=== PATIENT | male | born 1950 | race Caucasian/White ===

== ENCOUNTER → 2019-09-28 | Outpatient (CLI) | payer MEDICARE, OTHER ==
[~2019-09-28] MED LIST: Advair Hfa 230-12 GM; DIPH12.5EL
== END | disposition home or self-care (01) ==
LOC: LAB SHORT 07:55 → LAB EV 07:55
DX: S31.20XA Unspecified open wound of penis, initial encounter (principal)
CPT/HCPCS: 87070; 87205; 87529

== ENCOUNTER → 2023-02-04 | Outpatient (CLI) | payer MEDICARE, OTHER | END | disposition home or self-care (01) | LOC: LAB 13:28 → LAB SHORT 13:28 | DX: M25.572 Pain in left ankle and joints of left foot (principal) | CPT/HCPCS: 84550 ==

== ENCOUNTER 2024-12-22 07:43 | Emergency (ER) | payer MEDICARE, OTHER ==
[~2024-12-22] VITALS: Ht 185.4 cm; Wt 81.7 kg
[2024-12-22] MEDS ORDERED: HYDROXYZ HCL 25 MG (08:19)
[2024-12-22] MEDS ORDERED: HYDHCL25 PO (08:20)
[2024-12-22 08:22] LABS: BASOPHILS ABSOLUTE AUTO 0.04 K/mm3 (0.00-0.23); BASOPHILS PERCENT AUTO 0 % (0-2); EOSINOPHILS ABSOLUTE AUTO 0.54 K/mm3 (0.00-0.68); EOSINOPHILS PERCENT AUTO 5 % (0-6); Hemoglobin 11.5 g/dL (13.5-17.5); IMMATURE GRAN ABSOLUTE AUTO 0.07 K/mm3 (0.00-0.10); IMMATURE GRAN PERCENT AUTO 1 % (0-1); LYMPHOCYTES ABSOLUTE AUTO 0.95 K/mm3 (0.84-5.20); LYMPHOCYTES PERCENT AUTO 9 % (21-46); MONOCYTES ABSOLUTE AUTO 1.19 K/mm3 (0.16-1.47); MONOCYTES PERCENT AUTO 12 % (4-13); Mean Corpuscular HGB 31.5 pg (26.0-34.0); Mean Corpuscular HGB Conc 35.9 g/dL (31.5-36.5); Mean Corpuscular Volume 88 fL (80-100); Mean Platelet Volume 9.5 fL (9.1-12.4); NEUTROPHILS ABSOLUTE AUTO 7.32 K/mm3 (1.96-9.15); NEUTROPHILS PERCENT AUTO 72 % (41-73); Platelet Count 295 K/mm3 (150-400); RDW Coefficient Variation 22.9 % (11.7-14.2); RDW Standard Deviation 73.7 fL (35.1-46.3); Red Blood Cell Count 3.65 M/mm3 (4.30-5.90); White Blood Cell Count 10.11 K/mm3 (4.00-11.30)
[2024-12-22 08:57] LABS: Albumin, Blood 2.4 g/dL (3.4-5.0); Albumin/Globulin Ratio 0.8 (0.8-1.8); Bilirubin, Total 24.5 mg/dL (0.1-1.0); Calcium, Blood 9.2 mg/dL (8.5-10.1); Creatinine, Blood 0.57 mg/dL (0.60-1.20); Globulin, Blood 3.2 g/dL (2.2-4.0); Total Protein, Blood 5.6 g/dL (6.4-8.2)
[2024-12-22 15:47] VITALS: BP 134/71
== END 2024-12-22 17:29 | disposition home or self-care (01) ==
LOC: ER 07:43
PROVIDERS: Emergency Medicine
DX: K83.1 Obstruction of bile duct (principal); Z91.040 Latex allergy status; Z79.899 Other long term (current) drug therapy; Z87.891 Personal history of nicotine dependence
CPT/HCPCS: 80053; 83690; 85025; 99283

== ENCOUNTER 2025-01-21 17:14 | Inpatient (IN) | payer MEDICARE, OTHER ==
[~2025-01-21] VITALS: Ht 185.4 cm; Wt 76.5 kg
[~2025-01-21 17:14] MED LIST changes: +HYDHCL25 PO; +HYDROXYZ HCL 25 MG
[2025-01-21] MEDS ORDERED: Lactated Ringer's 1,000 ML IV ONE (19:10)
[2025-01-21] MEDS ORDERED: Ondansetron HCl 2 MG / ML 2ML Vial IV ONE (19:15)
[2025-01-21 19:16] LABS: BASOPHILS ABSOLUTE AUTO 0.07 K/mm3 (0.00-0.23); BASOPHILS PERCENT AUTO 0 % (0-2); EOSINOPHILS ABSOLUTE AUTO 0.03 K/mm3 (0.00-0.68); EOSINOPHILS PERCENT AUTO 0 % (0-6); Hematocrit 34.2 % (37.0-53.0); Hemoglobin 12.3 g/dL (13.5-17.5); IMMATURE GRAN ABSOLUTE AUTO 0.68 K/mm3 (0.00-0.10); IMMATURE GRAN PERCENT AUTO 3 % (0-1); LYMPHOCYTES ABSOLUTE AUTO 0.79 K/mm3 (0.84-5.20); LYMPHOCYTES PERCENT AUTO 3 % (21-46); MONOCYTES ABSOLUTE AUTO 1.42 K/mm3 (0.16-1.47); MONOCYTES PERCENT AUTO 6 % (4-13); Mean Corpuscular HGB 32.6 pg (26.0-34.0); Mean Corpuscular Volume 91 fL (80-100); Mean Platelet Volume 11.4 fL (9.1-12.4); NEUTROPHILS ABSOLUTE AUTO 22.35 K/mm3 (1.96-9.15); NEUTROPHILS PERCENT AUTO 88 % (41-73); Platelet Count 303 K/mm3 (150-400); RDW Coefficient Variation 16.4 % (11.7-14.2); RDW Standard Deviation 55.1 fL (35.1-46.3); Red Blood Cell Count 3.77 M/mm3 (4.30-5.90); White Blood Cell Count 25.34 K/mm3 (4.00-11.30)
[2025-01-21 19:23] LABS: Magnesium, Blood 2.5 mg/dL (1.6-2.4)
[2025-01-21 19:39] LABS: Albumin, Blood 1.6 g/dL (3.4-5.0); Albumin/Globulin Ratio 0.4 (0.8-1.8); Bilirubin, Total 25.2 mg/dL (0.1-1.0); Bun/Creatinine Ratio 31.3 (12.0-20.0); Calcium, Blood 8.5 mg/dL (8.5-10.1); Creatinine, Blood 2.3 mg/dL (0.60-1.20); Globulin, Blood 3.9 g/dL (2.2-4.0); Potassium, Blood 2.9 mmol/L (3.5-5.5); Total Protein, Blood 5.5 g/dL (6.4-8.2)
[2025-01-21] MEDS ORDERED: Potassium Chl 20MEQ/Water100ML 100 ML IV SCH (20:50)
[2025-01-21] MEDS ORDERED: Potassium Chloride 40 MEQ in NS 250 ML IV ONE (20:55)
[2025-01-21 21:47] LABS: International Normalized Ratio 1.82; Prothrombin Time Results 18.6 Sec (9.7-11.5)
[2025-01-22] MEDS ORDERED: Acetaminophen 325 MG TABLET PO PRN (00:05)
[2025-01-22] MEDS ORDERED: Ondansetron HCl 2 MG / ML 2ML Vial IV PRN (00:10)
[2025-01-22] MEDS ORDERED: NS KCl 20mEq 1,000 ML IV SCH (01:00)
[2025-01-22 02:28] VITALS: BP 123/67
[2025-01-22 02:34] LABS: Source, Urine Clean Catch
[2025-01-22 03:01] LABS: Blood, Urine 2+ (Neg); Glucose Qualitative, Urine Neg (Neg); Ketones, Urine Neg (Neg); Leukocyte Esterase, Urine 2+ (Neg); Nitrite, Urine Pos (Neg); Protein, Urine 2+ (Neg); Specific Gravity, Urine 1.015 (1.003-1.022); Urobilinogen, Urine 3+ (Normal)
[2025-01-22 03:12] LABS: Appearance, Urine Hazy (Clear); Bilirubin, Urine 3+ (Neg); Color, Urine Amber (P-Yellow)
[2025-01-22 03:13] LABS: Bacteria Many /hpf; Red Blood Cells, Urine 0-2 /hpf (0-2); Squamous Epithelial Cells Rare /hpf (Few); White Blood Cells, Urine 25-50 /hpf (0-5)
--- NOTE | 2025-01-22 06:00 | NUR ---
NEW ADMIT / SHIFT SUMMARY PT ADMIT FOR ACUTE RENAL INSUF. PT NEW DX OF BILE DUCT CANCER. PT ARRIVED TO ROOM AND TRANSFERED WITH 1PA FROM WHEEL CHAIR TO BED. PT IS A/OX4. ABLE TO ANSWER QUESTIONS. PT AFFECT WITHDRAWN/DEPRESSED. SKIN IS JAUNDICED. PT IS A DNR. PT STATED HE HAS CONSUMED ALCOHOL REGULARLY BUT LAST DRINK WAS TWO WEEKS AGO. PT IS FORMER SMOKER BUT QUIT YEARS AGO. ORIENTED PT TO ROOM AND CALL LIGHT. PT C/O OF FREQUENT LOOSE STOOLS AND NAUSEA. MEDS PER MAKE. PT RECEIVING POTASSIUM CHLORIDE INFUSION. PT INSTRUCTED ON FALL RISK. PT IS WEAK. PT STATES HE LOST 40LBS IN RECENT WEEKS/MONTHS WITHOUT TRYING. BED IS LOCKED AND LOW. CARE WILL CONTINUE UNTIL REPORT GIVEN TO ONCOMING NURSE.
[2025-01-22] MEDS ORDERED: CefTRIAXone Sodium 1,000 MG in NS 100 ML IV SCH (06:35)
[2025-01-22 07:07] LABS: BASOPHILS ABSOLUTE AUTO 0.03 K/mm3 (0.00-0.23); BASOPHILS PERCENT AUTO 0 % (0-2); EOSINOPHILS ABSOLUTE AUTO 0.04 K/mm3 (0.00-0.68); EOSINOPHILS PERCENT AUTO 0 % (0-6); Hematocrit 28.3 % (37.0-53.0); Hemoglobin 10.1 g/dL (13.5-17.5); IMMATURE GRAN ABSOLUTE AUTO 0.43 K/mm3 (0.00-0.10); IMMATURE GRAN PERCENT AUTO 2 % (0-1); LYMPHOCYTES ABSOLUTE AUTO 0.77 K/mm3 (0.84-5.20); LYMPHOCYTES PERCENT AUTO 4 % (21-46); MONOCYTES ABSOLUTE AUTO 1.25 K/mm3 (0.16-1.47); MONOCYTES PERCENT AUTO 6 % (4-13); Mean Corpuscular HGB 32.4 pg (26.0-34.0); Mean Corpuscular HGB Conc 35.7 g/dL (31.5-36.5); Mean Corpuscular Volume 91 fL (80-100); Mean Platelet Volume 10.7 fL (9.1-12.4); NEUTROPHILS ABSOLUTE AUTO 17.37 K/mm3 (1.96-9.15); NEUTROPHILS PERCENT AUTO 87 % (41-73); Platelet Count 253 K/mm3 (150-400); RDW Standard Deviation 53.2 fL (35.1-46.3); Red Blood Cell Count 3.12 M/mm3 (4.30-5.90); White Blood Cell Count 19.89 K/mm3 (4.00-11.30)
[2025-01-22 07:18] LABS: International Normalized Ratio 1.97
[2025-01-22 07:21] VITALS: BP 112/60
[2025-01-22 07:44] LABS: Albumin, Blood 1.3 g/dL (3.4-5.0); Albumin/Globulin Ratio 0.4 (0.8-1.8); Bun/Creatinine Ratio 31.4 (12.0-20.0); Calcium, Blood 8.2 mg/dL (8.5-10.1); Creatinine, Blood 2.23 mg/dL (0.60-1.20); Globulin, Blood 3.1 g/dL (2.2-4.0); Potassium, Blood 2.9 mmol/L (3.5-5.5); Total Protein, Blood 4.4 g/dL (6.4-8.2)
[2025-01-22] MEDS ORDERED: Heparin Sodium,Porcine 5,000 UNIT/0.5 ML SDV SC SCH (09:00)
[2025-01-22 15:47] VITALS: BP 144/65
[2025-01-22] MEDS ORDERED: NS 1,000 ML IV SCH (17:45)
--- NOTE | 2025-01-22 19:14 | NUR ---
ASSUMED CARE OF PT. A/O X4 VSS PT DOING WELL AND JUST WANTS TO REST TODAY. DIET IS CLR LIQ AND EARNESTINE WILL ADVANCE DIET. ASSESSMENT DONE PT JAUNDICE AN ON GOING ISSUE WITH PT HEALTH. NO C/O PAIN BUT DOES HAVE SOME DISCOMFORT FROM HICCUPING ALL DAY. MD IS AWARE AND ORDERED COMPAZINE FOR PT. COMPAZINE WORKED ENOUGH FOR PT TO EAT DINNER WITHOUT ANY DISTRESS. CALL LIGHT WITHIN REACH, PT MAKES NEEDS KNOWN.
[2025-01-22 19:31] VITALS: BP 128/59
[2025-01-22] MEDS ORDERED: Lactobacil 2-S.Thermo-Bifido 1 1 Cap PO SCH (21:00)
[2025-01-23 03:59] VITALS: BP 134/58
--- NOTE | 2025-01-23 04:42 | NUR ---
SHIFT SUMMARY PT ALERT ORIENTED ABLE TO VERBAlize needs gets up in room with 1 person sba to the bathroom. hes here for a common bile duct mass esther and hypokalemia. HES DUE TO HAVE AM LABS. REMAINS ON A FULL LIQUID DIET BUT ONLY EATS SMALL AMOUNTS. REMAINS ON ROCEPHIN QDAY FOR UTI. REMAINS ON NS AT 100. 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 HES HAD 2 ERCPS DONE AT [facility] AND THE DR IS CONTACTING [facility] TODAY TO SEE IF HE NEEDS TO TRANSFER TO OVER THERE TO POSSIBLY HAVE ANOTHER ERCP DONE. RESTING IN BED AT THIS TIME WITH CALL LIGHT IN REACH
[2025-01-23 06:54] LABS: BASOPHILS ABSOLUTE AUTO 0.03 K/mm3 (0.00-0.23); BASOPHILS PERCENT AUTO 0 % (0-2); EOSINOPHILS ABSOLUTE AUTO 0.06 K/mm3 (0.00-0.68); EOSINOPHILS PERCENT AUTO 0 % (0-6); Hematocrit 27.3 % (37.0-53.0); Hemoglobin 9.7 g/dL (13.5-17.5); IMMATURE GRAN ABSOLUTE AUTO 0.47 K/mm3 (0.00-0.10); IMMATURE GRAN PERCENT AUTO 3 % (0-1); LYMPHOCYTES ABSOLUTE AUTO 0.78 K/mm3 (0.84-5.20); LYMPHOCYTES PERCENT AUTO 4 % (21-46); MONOCYTES PERCENT AUTO 6 % (4-13); Mean Corpuscular HGB 32.6 pg (26.0-34.0); Mean Corpuscular HGB Conc 35.5 g/dL (31.5-36.5); Mean Corpuscular Volume 92 fL (80-100); Mean Platelet Volume 10.8 fL (9.1-12.4); NEUTROPHILS ABSOLUTE AUTO 16.44 K/mm3 (1.96-9.15); NEUTROPHILS PERCENT AUTO 87 % (41-73); Platelet Count 270 K/mm3 (150-400); RDW Coefficient Variation 16.2 % (11.7-14.2); RDW Standard Deviation 54.8 fL (35.1-46.3); Red Blood Cell Count 2.98 M/mm3 (4.30-5.90); White Blood Cell Count 18.88 K/mm3 (4.00-11.30)
[2025-01-23 07:03] VITALS: BP 128/60
[2025-01-23 07:04] LABS: Prothrombin Time Results 20.3 Sec (9.7-11.5)
[2025-01-23 07:32] LABS: Albumin, Blood 1.2 g/dL (3.4-5.0); Albumin/Globulin Ratio 0.4 (0.8-1.8); Bilirubin, Total 20.9 mg/dL (0.1-1.0); Bun/Creatinine Ratio 27.1 (12.0-20.0); Creatinine, Blood 2.29 mg/dL (0.60-1.20); Globulin, Blood 2.9 g/dL (2.2-4.0); Potassium, Blood 2.9 mmol/L (3.5-5.5); Total Protein, Blood 4.1 g/dL (6.4-8.2)
[2025-01-23 16:03] VITALS: BP 140/63
[2025-01-23] MEDS ORDERED: Potassium Chloride 20 MEQ TabCR PO ONE (17:00)
--- NOTE | 2025-01-23 18:16 | NUR ---
ASSUMED CARE. UNEVENTFUL DAY. PT DID VERY WELL NO C/O PAIN BUT WAS UPSET FROM HICCUPING CONSTANTLY. THORAZINE GIVEN FOR HICUPPS, OTHERWISE CALL LIGHT WITHING REACH AND ABLE TO MAKE NEEDS KNOWN. WILL CONT MONITORING
[2025-01-23 19:21] VITALS: BP 130/63
[2025-01-24 02:54] VITALS: BP 134/65
[2025-01-24 07:16] LABS: BASOPHILS ABSOLUTE AUTO 0.04 K/mm3 (0.00-0.23); BASOPHILS PERCENT AUTO 0 % (0-2); EOSINOPHILS ABSOLUTE AUTO 0.06 K/mm3 (0.00-0.68); EOSINOPHILS PERCENT AUTO 0 % (0-6); Hemoglobin 10.4 g/dL (13.5-17.5); IMMATURE GRAN ABSOLUTE AUTO 0.74 K/mm3 (0.00-0.10); IMMATURE GRAN PERCENT AUTO 3 % (0-1); LYMPHOCYTES ABSOLUTE AUTO 0.58 K/mm3 (0.84-5.20); LYMPHOCYTES PERCENT AUTO 3 % (21-46); MONOCYTES ABSOLUTE AUTO 0.92 K/mm3 (0.16-1.47); MONOCYTES PERCENT AUTO 4 % (4-13); Mean Corpuscular HGB Conc 35.9 g/dL (31.5-36.5); Mean Corpuscular Volume 92 fL (80-100); Mean Platelet Volume 10.3 fL (9.1-12.4); NEUTROPHILS PERCENT AUTO 89 % (41-73); Platelet Count 297 K/mm3 (150-400); RDW Coefficient Variation 16.4 % (11.7-14.2); RDW Standard Deviation 54.9 fL (35.1-46.3); Red Blood Cell Count 3.15 M/mm3 (4.30-5.90); White Blood Cell Count 21.64 K/mm3 (4.00-11.30)
[2025-01-24 07:48] LABS: International Normalized Ratio 1.28; Prothrombin Time Results 13.4 Sec (9.7-11.5)
[2025-01-24 07:51] LABS: Albumin, Blood 1.3 g/dL (3.4-5.0); Albumin/Globulin Ratio 0.4 (0.8-1.8); Bilirubin, Total 21.5 mg/dL (0.1-1.0); Bun/Creatinine Ratio 23.9 (12.0-20.0); Calcium, Blood 7.8 mg/dL (8.5-10.1); Creatinine, Blood 2.01 mg/dL (0.60-1.20); Globulin, Blood 3.1 g/dL (2.2-4.0); Total Protein, Blood 4.4 g/dL (6.4-8.2)
[2025-01-24 08:19] VITALS: BP 125/73
[2025-01-24] MEDS ORDERED: FentaNYL Citrate 50 MCG/ML 2 ML Injection IV PRN (09:05)
[2025-01-24] MEDS ORDERED: LevoFLOXacin 750 MG/D5W 150ML 150 ML IV SCH (09:30)
[2025-01-24 16:37] VITALS: BP 135/84
--- NOTE | 2025-01-24 18:04 | NUR ---
SHIFT SUMMARY PT IS A/OX4, INDEPENDENT IN THE ROOM. NO ACUTE CHANGES THROUGHOUT THIS SHIFT. PT REPORTING ABDOMINAL PAIN AND A HEADACHE THROUGHOUT THIS SHIFT, MEDICATED WITH FENTANYL PER NOV. CONTINUING IV ANTIBIOTICS. CONTINUOUS NS INFUSING @ 100 ML/HR. PT IS PLEASANT AND COOPERATIVE WITH CARE AND CALLS APPROPRIATELY USING THE CALL LIGHT.
[2025-01-24 19:50] VITALS: BP 141/68
[2025-01-25 04:49] VITALS: BP 147/63
--- NOTE | 2025-01-25 06:28 | NUR ---
SHIFT SUMMARY PATIENT IS ALERT AND ORIENTED. PATIENT HAS HAD NO ACUTE EVENTS THIS SHIFT. VITAL SIGNS REVIEWED. PATIENT HAS HAD COMPLAINTS OF PAIN AND MEDICATED PER EMAR. PATIENT HAS HAD NO COMPLAINTS OF SOB, NAUSEA, OR VOMITTING THIS SHIFT. PATIIENT HAS HAD FLUIDS INFUSING ALL SHIFT. BED IN LOCKED AND LOWEST POSITION. CALL LIGHT IN PLACE.
[2025-01-25 07:48] VITALS: BP 142/65
[2025-01-25 09:41] LABS: BASOPHILS ABSOLUTE AUTO 0.04 K/mm3 (0.00-0.23); BASOPHILS PERCENT AUTO 0 % (0-2); EOSINOPHILS ABSOLUTE AUTO 0.07 K/mm3 (0.00-0.68); EOSINOPHILS PERCENT AUTO 0 % (0-6); Hematocrit 29.2 % (37.0-53.0); Hemoglobin 10.4 g/dL (13.5-17.5); IMMATURE GRAN ABSOLUTE AUTO 0.52 K/mm3 (0.00-0.10); IMMATURE GRAN PERCENT AUTO 2 % (0-1); LYMPHOCYTES PERCENT AUTO 3 % (21-46); MONOCYTES ABSOLUTE AUTO 1.13 K/mm3 (0.16-1.47); MONOCYTES PERCENT AUTO 5 % (4-13); Mean Corpuscular HGB Conc 35.6 g/dL (31.5-36.5); Mean Corpuscular Volume 93 fL (80-100); Mean Platelet Volume 10.3 fL (9.1-12.4); NEUTROPHILS PERCENT AUTO 89 % (41-73); Platelet Count 347 K/mm3 (150-400); RDW Coefficient Variation 16.2 % (11.7-14.2); RDW Standard Deviation 54.9 fL (35.1-46.3); Red Blood Cell Count 3.15 M/mm3 (4.30-5.90); White Blood Cell Count 22.26 K/mm3 (4.00-11.30)
[2025-01-25 10:03] LABS: International Normalized Ratio 1.22; Prothrombin Time Results 12.9 Sec (9.7-11.5)
[2025-01-25 10:18] LABS: Albumin, Blood 1.3 g/dL (3.4-5.0); Albumin/Globulin Ratio 0.4 (0.8-1.8); Bilirubin, Total 22.3 mg/dL (0.1-1.0); Bun/Creatinine Ratio 24.3 (12.0-20.0); Calcium, Blood 8.2 mg/dL (8.5-10.1); Creatinine, Blood 1.85 mg/dL (0.60-1.20); Globulin, Blood 3.5 g/dL (2.2-4.0); Total Protein, Blood 4.8 g/dL (6.4-8.2)
[2025-01-25] MEDS ORDERED: Potassium Chloride 20 MEQ TabCR PO ONE (14:50)
[2025-01-25 15:12] VITALS: BP 176/69
[2025-01-25] MEDS ORDERED: MetroNIDAZOLE 500MG/NS 100 ml 100 ML IV SCH (19:00)
[2025-01-25] MEDS ORDERED: Cefepime HCl 2,000 MG in NS 100 ML IV SCH (19:00)
--- NOTE | 2025-01-25 19:10 | NUR ---
SHIFT SUMMARY PT IS A/OX4, INDEPENDENT IN THE ROOM. NO ACUTE CHANGES THROUGHOUT THIS SHIFT. PT REPORTS NAUSEA AND VOMITING X2 THIS SHIFT. RECIEVED FENTANYL X3 THIS SHIFT PER MAR FOR ABDOMINAL PAIN. CONTINUOUS NDS RUNNING AT 100 ML/HR. PT CALLS APPROPRIATELY USING THE CALL LIGHT.
[2025-01-25 20:01] VITALS: BP 127/60
[2025-01-26 04:25] VITALS: BP 103/50
--- NOTE | 2025-01-26 05:18 | NUR ---
SHIFT SUMMARY PATIENT IS ALERT AND ORIENTED. PATIENT HAS HAD NO ACUTE EVENTS THIS SHIFT. PATIENT HAS COMPLAINED OF PAIN THIS SHIFT AND MEDICATED TWICE THIS SHIFT. PATIENT HAS NO COMPLAINTS OF NAUSEA, SOB OR VOMITTING THIS SHIFT. IV AND ABX FLUIDS INFUSED ORDERED. BED IN LOCKED AND LOWEST POSITION. CALL LIGHT IN PLACE.
[2025-01-26 07:23] VITALS: BP 111/54
[2025-01-26 08:11] LABS: BASOPHILS ABSOLUTE AUTO 0.05 K/mm3 (0.00-0.23); BASOPHILS PERCENT AUTO 0 % (0-2); EOSINOPHILS ABSOLUTE AUTO 0.13 K/mm3 (0.00-0.68); EOSINOPHILS PERCENT AUTO 1 % (0-6); Hemoglobin 9.1 g/dL (13.5-17.5); IMMATURE GRAN ABSOLUTE AUTO 0.27 K/mm3 (0.00-0.10); IMMATURE GRAN PERCENT AUTO 1 % (0-1); LYMPHOCYTES PERCENT AUTO 1 % (21-46); MONOCYTES ABSOLUTE AUTO 0.59 K/mm3 (0.16-1.47); MONOCYTES PERCENT AUTO 2 % (4-13); Mean Corpuscular HGB 32.7 pg (26.0-34.0); Mean Corpuscular Volume 94 fL (80-100); Mean Platelet Volume 10.2 fL (9.1-12.4); NEUTROPHILS ABSOLUTE AUTO 25.67 K/mm3 (1.96-9.15); NEUTROPHILS PERCENT AUTO 95 % (41-73); Platelet Count 301 K/mm3 (150-400); RDW Coefficient Variation 16.4 % (11.7-14.2); RDW Standard Deviation 55.9 fL (35.1-46.3); Red Blood Cell Count 2.78 M/mm3 (4.30-5.90); White Blood Cell Count 27.01 K/mm3 (4.00-11.30)
[2025-01-26 08:38] LABS: Albumin, Blood 1.2 g/dL (3.4-5.0); Albumin/Globulin Ratio 0.4 (0.8-1.8); Bilirubin, Total 20.7 mg/dL (0.1-1.0); Bun/Creatinine Ratio 22.4 (12.0-20.0); Calcium, Blood 8.2 mg/dL (8.5-10.1); Creatinine, Blood 2.23 mg/dL (0.60-1.20); Potassium, Blood 3.8 mmol/L (3.5-5.5); Total Protein, Blood 4.2 g/dL (6.4-8.2)
--- NOTE | 2025-01-26 12:17 | NUR ---
Pt requested meeting with Palliative Care today. He tells this RN he's "been through hospice" several times. States his mom, dad and s/o all passed from metastatic cancer. He states he doesn't want to go to [facility] for further treatment. He requests a meeting tomorrow between him, his friend (who's flying in), Dr. Pearson, and this RN on discharge plan with hospice.
[2025-01-26 15:12] VITALS: BP 112/58
--- NOTE | 2025-01-26 15:25 | NUR ---
[facility] CALLED TO CHECK IN PT HAS VERBALLY DIRECTED THIS NURSE AND PALLATIVE CARE THAT HE IS REFUSING TRANSFER TO [facility]. HE WANTS TO MEET WITH HIS FRIEND AND DR SALDIVAR TOMORROW AND FORMULATE A HOSPICE PLAN. CARE ONGOING.
--- NOTE | 2025-01-26 18:22 | NUR ---
NOTE PT AWAKE AND ALERT. PT REQUESTING FENTANYL FOR ABD PAIN Q2H. FENTAYL DOES HELP BUT DOESN'T LAST LONG. VSS. PT HAS REFUSED TO GO TO [facility]. HE FEELS HIS TIME IS "BETTER SPENT" AT HOME WITH FAMILY/FRIENDS. PT SKIN IS SIGNIFICANT JAUNDICED. PT CALLS APPROPRIATELY. NEEDS MODERATE ASSIST WITH ADL'S. 2+ BLE EDEMA NOTED. KPAD TO ABD DOES HELP WITH THE CRAMPING FEELING. VERY POOR INTAKE. HE HAS ONLY DRANK MILK TODAY. HE IS NOT INTERESTED IN ANYTHING ELSE. ENSURE SHAKE/JUICE OFFERED. CARE ONGOING.
[2025-01-26 20:03] VITALS: BP 87/66
[2025-01-27 02:11] VITALS: BP 115/56
--- NOTE | 2025-01-27 05:36 | NUR ---
PT A&O X4, VS WITH INCREASED BP AT BEGINING OF SHIFT, IVP HYDRALAZINE ADMINISTERED AND THIS WAS VERY EFFECTIVE. CONTINUES TO USE FENTENYL IVP FOR PAIN CONTROL IN ABDOMENT. KPAD ALSO IN USE. IVF RUNNING AND STILL REMAINS ON IVABX. TRANSFER NURSE FROM [facility] CALL IN NIGHT AND WAS INFORMMED THAT PT HAS DECIDED NOT TO TRANSFER, THEY WILL CALL DURING DAY. REMAINS ON FULL LIQUIDS WITH MINIMAL INTAKE. REMAINS VERY JAUNDICE, ABDOMEN IS SOFT, MINIMAL DISTENTION. PLAN FOR MEETING WITH MD DIAN, AND FRIEND IN [facility].
[2025-01-27 06:29] LABS: BASOPHILS ABSOLUTE AUTO 0.03 K/mm3 (0.00-0.23); BASOPHILS PERCENT AUTO 0 % (0-2); EOSINOPHILS ABSOLUTE AUTO 0.02 K/mm3 (0.00-0.68); EOSINOPHILS PERCENT AUTO 0 % (0-6); Hematocrit 23.1 % (37.0-53.0); IMMATURE GRAN ABSOLUTE AUTO 0.44 K/mm3 (0.00-0.10); IMMATURE GRAN PERCENT AUTO 2 % (0-1); LYMPHOCYTES ABSOLUTE AUTO 0.49 K/mm3 (0.84-5.20); LYMPHOCYTES PERCENT AUTO 2 % (21-46); MONOCYTES ABSOLUTE AUTO 0.98 K/mm3 (0.16-1.47); MONOCYTES PERCENT AUTO 5 % (4-13); Mean Corpuscular HGB 32.8 pg (26.0-34.0); Mean Corpuscular HGB Conc 34.6 g/dL (31.5-36.5); Mean Corpuscular Volume 95 fL (80-100); Mean Platelet Volume 10.8 fL (9.1-12.4); NEUTROPHILS ABSOLUTE AUTO 19.43 K/mm3 (1.96-9.15); NEUTROPHILS PERCENT AUTO 91 % (41-73); Platelet Count 261 K/mm3 (150-400); RDW Coefficient Variation 16.8 % (11.7-14.2); RDW Standard Deviation 58.5 fL (35.1-46.3); Red Blood Cell Count 2.44 M/mm3 (4.30-5.90); White Blood Cell Count 21.39 K/mm3 (4.00-11.30)
[2025-01-27 06:57] LABS: Albumin, Blood 1.1 g/dL (3.4-5.0); Albumin/Globulin Ratio 0.4 (0.8-1.8); Bilirubin, Total 17.2 mg/dL (0.1-1.0); Bun/Creatinine Ratio 23.8 (12.0-20.0); Calcium, Blood 8.1 mg/dL (8.5-10.1); Creatinine, Blood 2.52 mg/dL (0.60-1.20); Globulin, Blood 3.1 g/dL (2.2-4.0); Potassium, Blood 3.6 mmol/L (3.5-5.5); Total Protein, Blood 4.2 g/dL (6.4-8.2)
[2025-01-27 07:57] VITALS: BP 113/58
[2025-01-27 14:37] VITALS: BP 126/61
--- NOTE | 2025-01-27 16:06 | NUR ---
MET WITH PT AND HIS FRIEND TO DISCUSS HOSPICE. HE WILL BE DISCHARGING TOMORROW WITH [facility]. FACE SHEET SENT ALONG WITH REQUEST FOR WALKER. PT STATES HE HOPES TO DISCHARGE BY NOON OR SO TOMORROW. WILL NEED PAIN MEDICATION PRESCRIPTION PRIOR TO DISCHARGE. CM TO FINISH THE DISCHARGE TOMORROW.
[2025-01-27 19:26] VITALS: BP 130/62
[2025-01-27] MEDS ORDERED: HYDROmorphone HCl 2 MG Tab PO PRN (19:40)
[2025-01-27] MEDS ORDERED: Docusate Sodium 100 MG Cap PO SCH (20:00)
[2025-01-28 01:51] VITALS: BP 114/62
--- NOTE | 2025-01-28 06:25 | NUR ---
SHIFT SUMMARY PT SLEPT LONG INTERVALS DURING THE NIGHT. PT'S IV STOPPED WORKING LATE LAST SHIFT- PT REFUSED NEW IV. CABIN CLEANER PROVIDER NOTIFIED AND AWARE, PO PAIN MEDICATION ORDERED, BUT NO MEDICATIONS D/C'D BY CABIN CLEANER PROVIDER. PT MEDICATED FOR PAIN WITH PO DILAUDED X2 PER EMAR. PT USING HEATING PAD PRN FOR PAIN WELL. PT UP INDEPENDENTLY IN ROOM. PT ANTICIPATING D/C WITH HOSPICE TODAY. BED IN LOWEST POSITION, CALL LIGHT WITHIN REACH, SIDERAILS UP X2
[2025-01-28 08:02] VITALS: BP 95/62
[2025-01-28] MEDS ORDERED: LevoFLOXacin 750 MG Tab PO SCH (09:00)
[2025-01-28] MEDS ORDERED: Amoxicillin/Clavulanate K 200 MG/5 ML UDC 5ML PO ONE (09:30)
[2025-01-28] MEDS ORDERED: HYDROmorphone HCl 2 MG Tab PO ONE (10:50)
[2025-01-28] MEDS ORDERED: Furosemide 40 MG Tab PO ONE (11:05)
--- NOTE | 2025-01-28 14:18 | NUR ---
DISCHARGE NOTE: PT LEFT WITH FRIEND AT APPROX 1322. HE WAS MEDICATED FOR PAIN PER EMAR WITH RELIEF. PT VERBALIZED UNDERSTANDING OF DISCHARGE INSTRUCTIONS. NO QUESTIONS AT TIME OF DISCHARGE.
== END 2025-01-28 13:24 | disposition hospice, home (50) | DRG 871 ==
LOC: ER 17:14 → MEDS 17:15 → ENPENDDIS 01-28 11:08 → MEDS 01-28 13:24
PROVIDERS: Family Medicine; Internal Medicine; Student in an Organized Health Care Education/Training Program; ADMIT Student in an Organized Health Care Education/Training Program
DX: A41.9 Sepsis, unspecified organism (principal); K83.1 Obstruction of bile duct; N17.9 Acute kidney failure, unspecified; N39.0 Urinary tract infection, site not specified; C24.0 Malignant neoplasm of extrahepatic bile duct; E87.1 Hypo-osmolality and hyponatremia; R65.20 Severe sepsis without septic shock; Z51.5 Encounter for palliative care; Z66 Do not resuscitate; R94.31 Abnormal electrocardiogram [ECG] [EKG]; E87.6 Hypokalemia; R73.9 Hyperglycemia, unspecified; E86.0 Dehydration; K52.9 Noninfective gastroenteritis and colitis, unspecified; R06.6 Hiccough; Z96.89 Presence of other specified functional implants; Z91.040 Latex allergy status; Z85.038 Personal history of other malignant neoplasm of large intestine; Z90.49 Acquired absence of other specified parts of digestive tract; Z87.891 Personal history of nicotine dependence
CPT/HCPCS: 36415; 71045; 74176; 76705; 80053; 81001; 82570; 83690; 83735; 84132; 84300; 85025; 85610; 85730; 86850; 86900; 86901; 87077; 87086; 87186; 93005; 93010; 96365; 96366; 96372; 96375; 99285-25; A9270; G0378; J0692; J0696; J1644; J1956; J2405; J3010; J3480; J7030; J7050; J7120